=== PATIENT | male | born 1975 | race Caucasian/White ===

== ENCOUNTER 2019-01-17 10:04 | Inpatient (IN) | payer OTHER ==
[~2019-01-17] VITALS: Ht 172.7 cm; Wt 127.0 kg
[~2019-01-17 10:04] MED LIST: CIPROFLOXACIN500 MG PO; COLACE100 MG PO; DEB AS; DONNATAL PO; FLAGYL500 MG PO; FLOXIN OT; LAC PO; LANTUS SOLOS100 U/M1 SQ; LEVAQUIN750 MG PO; LIDOCAINE HCL100 ML PO; LISINOPRIL2.5 MG; MYLANTA II/MAAL30 M1 PO; NEU300 PO; NEXIUM PO; NORCO1 TA2 PO; PAC PO; POTASSIUM CHLO10 ME2 PO; PRILOSEC40 MG PO; RANITIDINE HCL150 M1 PO; [UNRECOGNIZED DRUG - OTHER] OT
--- NOTE | 2019-01-17 10:10 | NUR ---
AGENCY DOCUMENTATION DONE BY Staff Name/Title - : RAZA ARAIZA JR/THOMAS [employer] User ID - : [id number] Agency Name - : [employer] Time Documented - From - : 699 To - : 1929
--- NOTE | 2019-01-17 10:29 | NUR ---
DR SADLER AT BEDSIDE FOR EVAL AT THIS TIME, APR RN AT BEDSIDE BILLBOARD MECHANIC.//APR RN
[2019-01-17 10:53] LABS: BASOPHIL % 0.3 % (0-2); PLATELET COUNT 277 x10^3mcL (130-400); RED CELL DISTRIBUTION WIDTH 13.6 % (11.5-14.5)
[2019-01-17 11:19] LABS: CALCIUM 8.7 mg/dL (8.5-10.1); CARBON DIOXIDE 24.3 mmol/L (21-32); CHLORIDE SERUM 101 mmol/L (98-107); CREATININE SERUM 0.9 mg/dL (0.7-1.3); GFR1 > 60 mL/min; GLUCOSE SERUM 198 mg/dL (74-106); POTASSIUM SERUM 3.4 mmol/L (3.5-5.1); SODIUM SERUM 137 mmol/L (136-145)
[2019-01-17 11:23] LABS: ALBUMIN 3.9 g/dL (3.4-5.0); ALKALINE PHOSPHATASE 73 U/L (46-116); ALT/SGPT 58 U/L (16-63); AST/SGOT 15 U/L (15-37); BILIRUBIN TOTAL 1.01 mg/dL (0.20-1.00); LIPASE 68 IU/L (73-393); TOTAL PROTEIN, SERUM 7.2 g/dL (6.4-8.2)
--- NOTE | 2019-01-17 13:42 | NUR ---
PT STS HE "FEELS HOT", AT BEDSIDE FANNING PT, DR SADLER MADE AWARE, VSS, PT REPORTS AN INCREASE OF PAIN.
[2019-01-17] MEDS ORDERED: METFORMIN HYDR500 M1 PO (13:43)
[2019-01-17] MEDS ORDERED: BASAGLAR K100 UNIT/1 SQ (13:47)
--- NOTE | 2019-01-17 14:16 | NUR ---
REPORT GIVEN THOMAS BROWN FOR ROOM 205B. PATIENT AND MADE AWARE OF ADMISSION AND VERBALIZED UNDERSTANDING, NO QUESTIONS AT THIS TIME//APR RN
--- NOTE | 2019-01-17 14:25 | NUR ---
RECEIVED PT VIA [employer] FROM E/D, ACCOMPANIED BY TRANSPORTER AND PT'S , KAREN DELUCA. PT A/A/O X 4, CALM, COOPERATIVE. AMBULATORY, NO GAIT OR BALANCE IMPAIRMENT NOTED WALKING FROM [facility] TO BED. DENIES CHEST PAIN OR DISCOMFORT AT THIS TIME. NO ACUTE RESPIRATORY DISTRESS NOTED. ABD FIRM, DISTENDED, HYPERACTIVE BOWEL SOUNDS AND TYMPANY UPON PERCUSSION X 4 QUADS, LAST BM 01/17/19, DIARRHEA, C/O CONSTANT SHARP ABD PAIN EXACERBATED BY MOVEMENT AND TWISTING, RELIEVED BY REST AND PAIN MEDICATIONS. IV SITE LAC 20G, CDI. ORIENTED PT AND TO ROOM, BED CONTROLS, CALL LIGHT SYSTEM. SIDE RAILS UP X 2, BED IN LOW POSITION. WILL ENDORSE TO THOMAS MELTON.
[2019-01-17 14:39] LABS: AMPHETAMINE QUAL UR NONE DETECTED (See below)
[2019-01-17 14:59] VITALS: BP 140/95
--- NOTE | 2019-01-17 15:17 | NUR ---
SPOKE WITH DR. ALMENDAREZ AND INFORMED HIM PATIENT ADMITTED TO FLOOR C/O ABD PAIN 12/29, NO MEDICATION AVAILABLE AT THIS TIME. RECEIVED TELEPHONE ORDERS FROM DR. PURCELL FOR THE FOLLOWING: NORCO 1 TAB PO Q4H PRN, ZOFRAN 4 MG IVP Q4H PRN, INSULIN SLIDING SCALE FOR HX OF DM AND BS 181 IN ER, CLEAR LIQUID DIET TOLERATED, CONSULT DR. ESCOBEDO, AND ORDERS FOR CBC AND BMP TOMORROW MORNING. ORDERS REPEATED TO DR. ALMENDAREZ AND CONFIRMED, WILL CARRY OUT ORDERS. ALL QUESTIONS AND CONCERNS ADDRESSED.
--- NOTE | 2019-01-17 15:25 | NUR ---
INFORMED PATIENT RECEIVED ORDER FROM DR. ALMENDAREZ FOR NORCO PO (SEE eMAR) FOR ABD PAIN. PATIENT REFUSED NORCO AT THIS TIME STATED IT MAKES HIM THROW UP, ALSO OFFERED PATIENT ZOFRAN IVP (SEE eMAR) PRIOR TO TAKING NORCO, BUT PATIENT REFUSED STATED HE DOESNT "WANT TO RISK IT." DR. ALMENDAREZ PAGED AT THIS TIME REGARDING THE ABOVE.
--- NOTE | 2019-01-17 15:43 | NUR ---
SPOKE WITH DR. ALMENDAREZ AND INFORMED HIM PATIENT REFUSED NORCO PO IT MAKES HIM THROW UP. RECEIVED TELEPHONE ORDER FOR MORPHINE 2 MG IVP Q4H PRN AND TORADOL 30 MG IV Q6H PRN, ORDERS REPEATED AND CONFIRMED, WILL CARRY OUT ORDER.
--- NOTE | 2019-01-17 16:15 | NUR ---
PATIENT MEDICATED WITH MORPHINE 2 MG IVP (SEE eMAR) FOR SHARP ABD PAIN 12/29. PATIENT C/O NAUSEA AFTER RECEIVING MORPHINE IVP, MEDICATED WITH ZOFRAN 4 MG IVP Q4H PRN. FAMILY AT BEDSIDE. ALL NEEDS ATTENDED TO, SAFETY PRECAUTIONS MAINTAINED. WILL MONITOR.
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
[2019-01-17 20:36] VITALS: BP 141/96
--- NOTE | 2019-01-17 21:08 | NUR ---
PT MEDICATED WITH MORPHINE 2MG IVP FOR SEVERE PAIN, WILL CONTINUE TO MONITOR.
--- NOTE | 2019-01-18 00:35 | NUR ---
MEDICATED PT WITH MORPHINE IVP, PT REPORTS PAIN ONLY MANAGED FOR A SHORT TIME. IV SITE FLUSHING WELL. CALL LIGHT WITHIN REACH, BED IN LOWEST POSITION, WILL CONTINUE TO MONITOR.
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
--- NOTE | 2019-01-18 05:15 | NUR ---
PT RESTED IN INTERVALS DURING SHIFT, NO ACUTE CHANGES OCCURRING DURING SHIFT. PT MEDICATED SEVERAL TIMES DURING SHIFT WITH MINIMAL RELIEF. PT REPORTS SHORT TERM RELIEF WITH MORPHINE AND MAALOX. IV SITE REMAINS PATENT TO LAC, D5 1/2 NS W/ 10MEQ K+. PT REMAINS ON RA, DENIES SOB. THIS AM, PT REPORTS FEELING SLIGHTLY DIZZINESS UPON AMBULATION. EDUCATED PT ON USING THE CALL LIGHT PRIOR TO GETTING UP TO ENSURE HE REMAINS SAFE, PT VERBALIZES UNDERSTANDING, ALL COMFORT AND SAFETY MEASURES PROVIDED FOR, CALL LIGHT WITHIN REACH, BED IN LOWEST POSITION, WILL CONTINUE TO MONITOR.
[2019-01-18 05:34] VITALS: BP 123/80
[2019-01-18 07:11] LABS: BASOPHIL % 0.5 % (0-2); PLATELET COUNT 226 x10^3mcL (130-400); RED CELL DISTRIBUTION WIDTH 13.7 % (11.5-14.5)
[2019-01-18 07:15] LABS: CALCIUM 8.1 mg/dL (8.5-10.1); CARBON DIOXIDE 24.5 mmol/L (21-32); CHLORIDE SERUM 106 mmol/L (98-107); CREATININE SERUM 0.8 mg/dL (0.7-1.3); GFR1 > 60 mL/min; GLUCOSE SERUM 163 mg/dL (74-106); POTASSIUM SERUM 3.2 mmol/L (3.5-5.1); SODIUM SERUM 141 mmol/L (136-145)
--- NOTE | 2019-01-18 07:35 | NUR ---
RECEIVED PT. IN BED A/A/O X3. NO SOB, NO N/V NOTED. PT. DENIES ANY PAIN AT THIS TIME. D51/2NS + 10 MEQ KCL RUNNING AT 125 CC/HR VIA IV SITE AT L AC. SCD TO BLE MAINTAINED. BED IN LOW POS., CALL LIGHT WITHIN REACH. SIDE RAILS UP X3.
--- NOTE | 2019-01-18 07:35 | NUR ---
ENDORSED ALL CARE TO DAYSHIFT NURSE, NO ACUTE DISTRESS NOTED. ALL QUESTIONS AND CONCERNS ADDRESSED, CALL LIGHT WITHIN REACH, BED IN LOWEST POSITION.
[2019-01-18 09:25] VITALS: BP 134/86
--- NOTE | 2019-01-18 12:14 | NUR ---
PT. IS BEING TAKEN TO GI DEPT. FOR PROCEDURE AT THIS TIME.
--- NOTE | 2019-01-18 13:41 | NUR ---
RECEIVED PT. BACK FROM RECOVERY DEPT. PT. IS S/P EGD TODAY. PT. APPEARS DROWSY. NO SOB, NO N/V NOTED. B/P= 144/85, P= 70, R.R.= 16, T= 98.6, O2 SAT.= 98% (R.A.). WILL CONTINUE TO MONITOR.
[2019-01-18 13:43] VITALS: BP 144/85
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
[2019-01-18 17:00] VITALS: BP 121/78
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
--- NOTE | 2019-01-18 19:40 | NUR ---
RECEIVED REPORT FROM DAY SHIFT RN. PT RESTING IN BED. AA&O X4. NO SOB ON ROOM AIR. C/O MID CHEST SHARP PAIN 12/29. WILL MEDICATE. IV TO LAC, INTACT. SAFETY MEASURES IN PLACE. BED IN LOWEST POSITION. SIDE RAILS UP X2. INSTRUCTED PT TO USE THE CALL LIGHT FOR ASSISTANCE. CALL LIGHT WITHIN REACH.
--- NOTE | 2019-01-18 20:20 | NUR ---
C/O SHARP PAIN TO MID CHEST 12/29, TORADOL GIVEN.
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
[2019-01-18 20:55] VITALS: BP 126/61
--- NOTE | 2019-01-18 21:27 | NUR ---
PT REFUSED NEURONTIN THIS AM. PT WANTS IT TONIGHT. NEURONTIN GIVEN (SEE EMAR).
--- NOTE | 2019-01-19 01:12 | NUR ---
PT C/O SHARP PAIN TO MID CHEST AREA 01/29. MAALOX GIVEN.
--- NOTE | 2019-01-19 03:10 | NUR ---
PT C/O SHARP PAIN TO MID CHEST 01/29. MAALOX GIVEN.
--- NOTE | 2019-01-19 05:45 | NUR ---
PT CALLED TO PICK HIM UP. PT EXPRESSED WANTING TO GO HOME SOON PT'S GETS HERE.
[2019-01-19 05:50] VITALS: BP 149/90
--- NOTE | 2019-01-19 06:54 | NUR ---
PT DISCHARGED TO HOME. PICKED UP BY . NO SOB ON ROOM AIR. NO C/O PAIN. NO DISTRESS NOTED. IV REMOVED, CATHETER INTACT. NO BLEEDING. NO TELE MONITOR. DISCHARGE PAPERS EXPLAINED AND SIGNED. PRESCRIPTION AND DISCHARGE PACKET GIVEN TO THE PT.
[2019-01-19 08:52] VITALS: Ht 172.7 cm; Wt 127.0 kg
== END 2019-01-19 06:55 | disposition home or self-care (01) | DRG 254 ==
LOC: ED 10:04 → MU 13:41
PROVIDERS: Emergency Medicine; ADMIT Internal Medicine
PROC: 0DB98ZX Excision of Duodenum, Via Natural or Artificial Opening Endoscopic, Diagnostic (ICD-10-PCS; principal; 2019-01-17)
PROC: 0DB68ZX Excision of Stomach, Via Natural or Artificial Opening Endoscopic, Diagnostic (ICD-10-PCS; 2019-01-17)
PROC: 0DB58ZX Excision of Esophagus, Via Natural or Artificial Opening Endoscopic, Diagnostic (ICD-10-PCS; 2019-01-17)
DX: K31.89 Other diseases of stomach and duodenum (principal); E66.01 Morbid (severe) obesity due to excess calories; R11.2 Nausea with vomiting, unspecified; F12.10 Cannabis abuse, uncomplicated; K26.9 Duodenal ulcer, unspecified as acute or chronic, without hemorrhage or perforation; E11.9 Type 2 diabetes mellitus without complications; I10 Essential (primary) hypertension; E87.6 Hypokalemia; K29.80 Duodenitis without bleeding; K21.9 Gastro-esophageal reflux disease without esophagitis; Z68.41 Body mass index [BMI] 40.0-44.9, adult
CPT/HCPCS: 43235; 82962; G0378; J1200; J1610; J1885; J2250; J2270; J2310; J2405; J2543; J3010; J3480; J3490